=== PATIENT | female | born 1995 | race African-American/Black ===

== ENCOUNTER 2016-06-17 04:16 | Emergency (ER) | payer OTHER ==
[~2016-06-17] VITALS: Ht 175.3 cm; Wt 102.3 kg
[2016-06-17 04:20] VITALS: BP 143/93; PULSE 149; RESP 16; O2SAT 97
--- NOTE | 2016-06-17 04:57 | ED.REPORT ---
HPI-Abd Pain F Under 40 Date of Service Jun 17, 2016 ED Provider: Kale Chowdhury MD Patient is a 21 year old female who presents to the ED with nausea, vomiting, and diarrhea that began at midnight. Patient has been unable to keep down any fluids since onset of symptoms. The patient admits to associated abdominal cramping but denies hematochezia or hematemesis. Patient has not had any previous abdominal surgeries. There is no one else at home that is currently ill with similar symptoms. Patient also admits to having a cough for the past week. Nursing Notes Stated Complaint: VOMITING/ DIARRHEA Chief Complaint: Female Abdominal Pain Nursing Notes Reviewed: Yes Allergies: Uncoded Allergies: PENICILLIN (Allergy, Unknown, 06/17/16) Scheduled Ondansetron ODT (Ondansetron ODT) 8 Mg Tab.rapdis 8 MG PO QID General Time Seen by MD: 04:57 Chief Complaint Diarrhea moderate, Nausea, Vomiting moderate Hx Obtained From: Patient Arrived By: Walk-in Sudden in Onset?: No Onset Occurred: 5 - 8 hours ago Symptom Duration: Since onset Location: : Diffuse Quality: Cramping Severity: Current: Mild Severity: Maximum: Mild Recent Healthcare: No recent doctor visit, No recent hospitalization Similar Sx Previous: No Past Medical History Past Medical History anxiety Reports: Depression Past Surgical History none Smoking History Unknown if Ever Smoker Social History Other Social History: Good social support, Local resident Ambulatory Status Independent Review of Systems Respiratory: Reports: Non-productive cough GI: Reports: Abdominal pain, Diarrhea, Nausea, Vomiting, Denies: Hematemesis, Hematochezia Complete sys rev & neg: except as marked. Physical Exam Initial Vital Signs Vital Signs (First) Date Time Temp Pulse Resp B/P Pulse Ox O2 Delivery O2 Flow Rate FiO2 06/17/16 04:20 36.4 149 16 143/93 97 Room Air Initial VS: Reviewed Head / Eyes: Atraumatic, Normocephalic, PERRL ENT: Mucous membranes moist, Conjunctiva normal, No scleral icterus Neck: Supple, Full range of motion Extremities: Vascular intact, Neuro intact Skin: Warm, Dry, No cyanosis Neurologic: Alert, Oriented, Nonfocal Psychiatric: Mood/affect normal, Behavior normal, Normal thought content General/Constitutional: Awake, Alert, Well developed Behavior: Positive: Anxious Respiratory / Chest: Breath sounds NL, Breath sounds = bilat, No respiratory distress, No rales, No rhonchi, No wheezing Cardiovascular: Regular rhythm, No murmurs Heart Rate / Rhythm: Positive: Tachycardia Abdomen: Soft, Non-tender, No guarding, No rebound Back: Not examined. Interpretation & Diagnostics Lab Results Interpretation Result Diagram: 06/17/16 0436 06/17/16 0436 Test 06/17/16 04:36 White Blood Count 14.1th/mm3 (3.8-10.1) Red Blood Count 5.61mil/mm3 (3.90-5.20) Hemoglobin 12.6g/dL (12.0-15.6) Hematocrit 38.4% (35.0-46.0) Mean Corpuscular Volume 68.4fL (81-100) Mean Corpuscular Hemoglobin 22.5pg (27.0-35.0) Mean Corpuscular Hemoglobin Concent 32.8% (32.0-37.0) Red Cell Distribution Width 19.1% (12.3-15.4) Platelet Count 616bil/L (150-400) Neutrophils (%) (Auto) 90.3% (40-74) Lymphocytes (%) (Auto) 5.0% (14-46) Monocytes (%) (Auto) 4.2% (4-12) Eosinophils (%) (Auto) 0.2% (0-5) Basophils (%) (Auto) 0.1% (0-3) Hold Purple Top Tube Received (Received) Hold Blue Top Tube Received (Received) Sodium Level 139mEq/L (134-144) Potassium Level 3.6mEq/L (3.5-5.2) Chloride Level 99mEq/L (97-108) Carbon Dioxide Level 18mmol/L (18-29) Blood Urea Nitrogen 11mg/dL (6-20) Creatinine 0.62mg/dL (0.57-1.00) Estimat Glomerular Filtration Rate 158mL/min (>59) Glucose Level 137mg/dL (60-99) Calcium Level 9.7mg/dL (8.5-10.1) Total Bilirubin 0.3mg/dL (0.0-1.2) Aspartate Amino Transf (AST/SGOT) 27U/L (0-50) Alanine Aminotransferase (ALT/SGPT) 29U/L (0-32) Alkaline Phosphatase 129U/L (25-150) Total Protein 8.6g/dL (6.4-8.4) Albumin 4.4g/dL (3.4-5.0) Lipase 15U/L (13-60) Hold [place] Top Tube Received (Received) Re-Eval/Medical Decision Med Decision/Clinical Course Med Decision/Clinical Course: Healthy 21-year-old with acute onset nausea vomiting diarrhea, fairly clearly a viral gastroenteritis such as norovirus. Nausea control provided with ondansetron. Clear fluids taken here. Discharged home in stable and improved condition. Pepto-Bismol for diarrhea. Return if any immediate issues. Re-Evaluation/Progress : Time of Eval: 06:05 Patient Status: Condition improved, Drinking well without N/V Re-Evaluation/Progress Note: Patient is improved after fluids and Zofran. Tolerated PO in the ED. Discussed lab results. Patient understands and agrees with the plan to be discharged home. Discharge instructions and follow-up discussed. All questions were addressed. Return to the ED warnings given. Counseled Regarding: Diagnosis, Lab results, Need for follow-up, When/why to return to ED Discharge & Departure Primary Impression: Gastroenteritis Disposition: Home Discharge Condition All VS Reviewed: Yes Condition: Stable Patient Instructions: Acute Diarrhea (ED), Acute Nausea and Vomiting (ED), Gastroenteritis (ED) Additional Instructions: Drink frequent small amounts of clear fluids such as Gatorade or Powerade to maintain hydration. Zofran up four times daily if needed for nausea May use Pepto-Bismol chewables at maximal label directions to manage her diarrhea Follow-up with your doctor in the office Return if any immediate issues Referrals: Sarbjit Fletcher MD Attestation Portions of this note were transcribed by Amaya Cruz. I, Dr. Chowdhury personally performed the history, physical exam and medical decision-making; I reviewed and confirmed the accuracy of the information in the transcribed note. Signed by: Emily Jefferson, 06/17/2016 0605 copies to: Sarbjit Fletcher MD, Christopher W MD Jun 17, 2016 04:57 Amaya Cruz Jun 17, 2016 05:16
[2016-06-17] MEDS ORDERED: 0.9% Sodium Chloride 1,000 ML IV ONE ×2 (05:04→05:05)
[2016-06-17] MEDS ORDERED: Pantoprazole 4 mg/mL 10 mL Inj IVPUSH ONE (05:05)
[2016-06-17] MEDS ORDERED: Ondansetron 2 mg/mL 2 mL Inj IVPUSH ONE (05:05)
[2016-06-17 05:21] LABS: BASOPHILS % (AUTO) 0.1 % (0-3); EOSINOPHILS % (AUTO) 0.2 % (0-5); MONOCYTES % (AUTO) 4.2 % (4-12); Mean Corpuscular Hemoglobin 22.5 pg (27.0-35.0); Mean Corpuscular Volume 68.4 fL (81-100); NEUTROPHILS % (AUTO) 90.3 % (40-74); Platelet Count 616 bil/L (150-400)
[2016-06-17] MEDS ORDERED: ONDA8TAB10 PO (06:02)
[2016-06-17 06:13] VITALS: BP 128/79; PULSE 140; RESP 14; O2SAT 99
== END 2016-06-17 06:14 | disposition home or self-care (01) ==
LOC: SED 04:16
DX: K52.9 Noninfective gastroenteritis and colitis, unspecified (principal); Z88.0 Allergy status to penicillin
CPT/HCPCS: 36415; 80053; 83690; 85025; 96361; 96374; 96375; 99284; J2405; J7030

== ENCOUNTER → 2017-01-24 | Day surgery (SDC) | payer OTHER ==
[~2017-01-24] VITALS: Ht 175.3 cm; Wt 120.2 kg
[~2017-01-24] MED LIST: 0.9% Sodium Chloride 1,000 ML IV SCH; OLAN5TAB PO; ONDA8TAB10 PO; Sodium Chloride LOK Flush 10 mL Syringe IV PRN; VENL50TA3 PO; fentaNYL-PF 50 mCg/mL 2 mL Inj IVPUSH PRN
[2017-01-24 08:39] VITALS: BP 129/83; PULSE 120; RESP 18; O2SAT 100
[2017-01-24 09:57] VITALS: BP 140/69; PULSE 99; RESP 16; O2SAT 98
[2017-01-24 10:07] VITALS: BP 144/79; PULSE 103; RESP 16; O2SAT 100
[2017-01-24 10:17] VITALS: BP 137/77; PULSE 97; O2SAT 100
--- NOTE | 2017-01-24 13:58 | ENDO ---
[address] [address] ENDOSCOPY PROCEDURE PATIENT: MELANIE MCCARTHY : 1995 MR#: [id number] ADMIT: 01/24/2017 JOB ID: [id number] DATE OF SERVICE: 01/24/2017 TYPE OF OPERATION: Colonoscopy, biopsy. PREOPERATIVE DIAGNOSIS: Diarrhea. POSTOPERATIVE DIAGNOSIS: Normal colonoscopy, status post biopsy. ANESTHESIA: Fentanyl 100 mcg, Versed 5 mg IV administered. COMPLICATIONS: None. BLOOD LOSS: Minimal. DESCRIPTION OF PROCEDURE: After risks and benefits explained to the patient, informed consent was obtained. After anesthesia was administered, colonoscope was then inserted from the rectum to the terminal ileum and mucosa carefully examined. Prep of the patient was fair. After procedure was done, the scope was withdrawn and the procedure terminated. FINDINGS: Upon inspection of the anus, no masses, hemorrhoids, ulcers, fissures that were seen throughout the entire examination. No polyps, masses or lesions. Retroflexion was normal. Biopsies taken of the terminal ileum and random colon. IMPRESSIONS: Normal colonoscopy, status post biopsy. RECOMMENDATION: Await pathology results. Follow up in GI Clinic as needed.
--- NOTE | 2017-01-26 11:41 | PATH ---
SURGICAL PATHOLOGY Attending Physician:Oral Torres MD CASE STATUS: Signed Out PATIENT NAME: MELANIE MCCARTHY PID: [id number] : 1995 DATE COLLECTED:01/24/2017 19:29 SPECIMEN: 1: Ileum, Biopsy 2: Colon, Biopsy CLINICAL HISTORY: 1). TERMINAL ILEUM BIOPSY 2). RANDOM COLON BIOPSY FINAL DIAGNOSIS: 1. Terminal Ileum, Biopsy: Small bowel mucosa with no diagnostic abnormality. Negative for active inflammation, dysplasia and malignancy. 2. Random Colon, Biopsies: Colonic mucosa with no diagnostic abnormality. Negative for active inflammation and microscopic colitis. Negative for dysplasia and malignancy. ICD10: R19.7 GROSS DESCRIPTION: The specimen is received in two formalin filled containers labeled with the patient's name. 1). The specimen is labeled "terminal ileum" and consists of 3 portions of tissue which aggregate to 0.2 x 0.2 x 0.2 CM. The specimen is entirely submitted in cassette 1A. 2). The specimen is labeled "random colon" and consists of multiple portions of tissue which aggregate to 0.3 x 0.3 x 0.2 CM. The specimen is entirely submitted in cassette 2A. 01/24/2017DC ICD-9 CODES: CPT CODES: 1: 56578 2: 50351 Electronically Signed Out Hira Miller MD, PhD [facility], [place] [address] Technical component performed at [facility], [address] [place] [address] Ave[address], [place], [address]
== END | disposition home or self-care (01) ==
LOC: END 00:29
PROVIDERS: ATTEND Internal Medicine Gastroenterology
DX: R19.7 Diarrhea, unspecified (principal); F32.9 Major depressive disorder, single episode, unspecified; F41.9 Anxiety disorder, unspecified
CPT/HCPCS: 45380; G0500; J2250; J3010; J7030